=== PATIENT | female | born 1985 | race Hispanic/Latino ===

== ENCOUNTER 2018-08-17 01:26 | Emergency (ER) | payer SELFPAY ==
--- NOTE | 2018-08-17 02:25 | ED PDOC ---
HPI: Psych/Substance Abuse Time Seen by Provider: 08/17/18 01:44 Chief Complaint (Nursing): Alcohol Ingestion Chief Complaint (Provider): Alcohol Ingestion History Per: Patient History/Exam Limitations: intoxication Onset/Duration Of Symptoms: Days Current Symptoms Are (Timing): Still Present Suicide/Self Injury Attempted (Context): None Modifying Factor(s): Alcohol Associated Symptoms: Anger, Agitation Additional Complaint(s): 33 y/o female with an unknown PMHx brought in by EMS for evaluation of alcohol intoxication. Patient is agitated in the ED, screaming and cursing at staff and providers. Patient offers no complaints at this time. However, patient's eyes are blood shot and patient is walking around completely naked in the ED. pt not cooperative. PMD: No Provider Past Medical History Reviewed: Historical Data, Nursing Documentation, Vital Signs Vital Signs: Last Vital Signs Temp 98.4 F 08/17/18 01:44 Pulse 130 H 08/17/18 01:44 Resp 20 08/17/18 01:44 BP 130/67 08/17/18 01:44 Pulse Ox 100 08/17/18 01:44 - Medical History PMH: No Chronic Diseases - Surgical History Surgical History: No Surg Hx - Family History Family History: States: Unknown Family Hx - Social History Alcohol: > 2 Drinks/Day - Allergies Allergies/Adverse Reactions: Allergies Allergy/AdvReac Type Severity Reaction Status Date / Time No Known Allergies Allergy Verified 08/17/18 01:44 Review of Systems ROS Statement: Except As Marked, All Systems Reviewed And Found Negative Psych: Positive for: Other (Alcohol Intoxication and Agitation) Physical Exam - Reviewed Nursing Documentation Reviewed: Yes Vital Signs Reviewed: Yes - Physical Exam Appears: Positive for: No Acute Distress (But agitated, screaming and cursing at staff and provider) Head Exam: Positive for: ATRAUMATIC, NORMOCEPHALIC Skin: Positive for: Normal Color, Warm, Dry Eye Exam: Positive for: EOMI, PERRL, Other (Blood shot eyes) Neck: Positive for: Normal, Painless ROM Cardiovascular/Chest: Positive for: Regular Rate, Rhythm. Negative for: Bradycardia, Tachycardia Respiratory: Positive for: Normal Breath Sounds Gastrointestinal/Abdominal: Positive for: Soft. Negative for: Tenderness Extremity: Positive for: Normal ROM. Negative for: Deformity Neurologic/Psych: Positive for: Alert (but not coherent), Oriented (X1 name). Negative for: Motor/Sensory Deficits - Laboratory Results Result Diagrams: 08/17/18 02:50 08/17/18 02:50 - ECG O2 Sat by Pulse Oximetry: 100 (RA) Pulse Ox Interpretation: Normal Medical Decision Making Medical Decision Making: Time: 151 Plan: acute intoxication, uncooperative -- Acetaminophen -- Alcohol Serum -- CMP -- Urine Drug Screen -- Salicylate -- CBC with Differentials -- 1:1 Observation -- Urinalysis Time: 214 -- Due to patient's agitation and behavior in the ER, patient to be given Ativan and Haldol to relieve agitation as well as to be placed in 4-point restraints for the safety of herself and others. -- Ativan 2 mg IM -- Haldol 5 mg IM -- Restraint: Violent or harm to self/other As Ordered -- Urinalysis Time: 023 -- Patient continues to be aggressive towards staff and provider. Patient given an additional dose of Ativan. -- Ativan 2 mg IM Time: 0438 -- Labs reviewed and demonstrate amphetamines and alcohol in urine Time: 0700 -- Patient endorsed to Dr. Meza, pending sobriety and possible crisis evaluation. Scribe Attestation: Documented by Flip Fabian, acting as a scribe for Prasanth Pham MD Provider Scribe Attestation: All medical record entries made by the Scribe were at my direction and personally dictated by me. I have reviewed the chart and agree that the record accurately reflects my personal performance of the history, physical exam, medical decision making, and the department course for this patient. I have also personally directed, reviewed, and agree with the discharge instructions and disposition. Disposition - Clinical Impression Clinical Impression: Alcohol abuse with alcohol-induced disorder - Patient ED Disposition Is Patient to be Admitted: Transfer of Care - Disposition Disposition: Transfer of Care Disposition Time: 07:00 Condition: IMPROVED Instructions: Alcohol Abuse and Alcoholism (DC) Forms: [employer] (Korean) Patient Signed Over To: Montserrat Meza Handoff Comments: pending sobriety and possible crisis evaluation
[2018-08-17 03:14] LABS: BASO % 0.7 % (0.0-2.0); EOS % 0.3 % (0.0-4.0); HEMOGLOBIN 13.3 g/dL (12.0-16.0); LYMPH # 1.6 K/uL (1.0-4.3); LYMPH % 27.3 % (20.0-40.0); MEAN CELL VOLUME 102.6 fl (81.0-99.0); MEAN CORPUSCULAR HEMOGLOBIN 33.9 pg (27.0-31.0); MEAN CORPUSCULAR HGB CONC 33.1 g/dL (33.0-37.0); MEAN PLATELET VOLUME 7.6 fl (7.2-11.7); MONO # 0.4 K/uL (0.0-0.8); MONO % 5.9 % (0.0-10.0); NEUT % 65.8 % (50.0-75.0); NRBC % 0.1 % (0.0-0.0); RBC 3.92 Mil/uL (3.80-5.20); RED CELL DISTRIBUTION WIDTH 14.4 % (11.5-14.5)
[2018-08-17 03:17] LABS: SQUAMOUS EPITHIAL < 1 /hpf (0-5); URINE BILIRUBIN NEGATIVE (NEGATIVE); URINE BLOOD NEGATIVE (NEGATIVE); URINE CLARITY CLEAR (Clear); URINE COLOR COLORLESS (YELLOW); URINE GLUCOSE (UA) NEG (NEGATIVE); URINE LEUKOCYTE ESTERASE NEG Leu/uL (Negative); URINE PROTEIN NEGATIVE (NEGATIVE); URINE UROBILINOGEN 0.2-1.0 mg/dL (0.2-1.0)
[2018-08-17 03:25] LABS: ACETAMINOPHEN < 10.0 ug/ml (10.0-30.0); ALB/GLOB RATIO 1.5 (1.0-2.1); ALBUMIN 4.5 g/dL (3.5-5.0); ALT/SGPT 27 U/L (9-52); AST/SGOT 29 U/L (14-36); BLOOD UREA NITROGEN 10 mg/dl (7-17); CALCIUM 8.6 mg/dL (8.4-10.2); GFR NON-AFRICAN AMERICAN > 60; SALICYLATE < 1.0 mg/dl
[2018-08-17 03:33] LABS: BARBITURATES, UR NEGATIVE (NEGATIVE); BENZODIAZEPINES, UR NEGATIVE (NEGATIVE); OPIATES, UR NEGATIVE (NEGATIVE); PHENCYCLIDINE, UR NEGATIVE (NEGATIVE)
--- NOTE | 2018-08-17 07:36 | ED PDOC ---
- Laboratory Results Result Diagrams: 08/17/18 02:50 08/17/18 02:50 - ECG O2 Sat by Pulse Oximetry: 96 Medical Decision Making Medical Decision Making: Time: 0700 --Patient endorsed to provider by Dr. Pham, pending clinical sobriety and crisis eval. Scribe Attestation: Documented by Sonia Alonso, acting as a scribe for Montserrat Meza MD. Provider Scribe Attestation: All medical record entries made by the Scribe were at my direction and personally dictated by me. I have reviewed the chart and agree that the record accurately reflects my personal performance of the history, physical exam, medical decision making, and the department course for this patient. I have also personally directed, reviewed, and agree with the discharge instructions and disposition. 12.30p - patient awake and alert now. Boyfriend at bedside. Patient denies SI/HI. She states that she was agitated because she was not allowed to leave and that this led her to become agitated and requiring sedation. Disposition Doctor Will See Patient In The: Office Counseled Patient/Family Regarding: Diagnosis, Need For Followup - Clinical Impression Clinical Impression: Alcohol abuse with alcohol-induced disorder - POA Present On Arrival: None - Disposition Disposition: Routine/Home Disposition Time: 12:30 Condition: IMPROVED Instructions: Alcohol Abuse and Alcoholism (DC) Forms: [employer] (Wallisian)
[2018-08-17 08:13] VITALS: TEMP 97
[2018-08-17 14:07] VITALS: BP 101/56; PULSE 60; RESP 16
[2018-08-18 00:09] VITALS: O2SAT 100
== END 2018-08-17 14:07 | disposition home or self-care (01) ==
LOC: H.ER 01:26
DX: F10.188 Alcohol abuse with other alcohol-induced disorder (principal)
CPT/HCPCS: 80053; 81003; 81025; 85025; 96372; 99284; G0480; J1630; J2060